=== PATIENT | female | born 1995 | race Caucasian/White ===

== ENCOUNTER 2018-12-17 22:57 | Emergency (ER) | payer OTHER ==
[~2018-12-17] VITALS: Ht 147.3 cm; Wt 87.1 kg
[2018-12-17 23:05] VITALS: Ht 147.3 cm; Wt 87.1 kg
[2018-12-18 01:28] VITALS: BP 114/68
== END 2018-12-18 01:28 | disposition home or self-care (01) ==
LOC: ED 22:57
DX: M54.5 Low back pain (principal); G89.29 Other chronic pain
CPT/HCPCS: J1885; Q0162